=== PATIENT | female | born 1990 | race Caucasian/White ===

== ENCOUNTER 2016-08-02 17:18 | Emergency (ER) | payer BC ==
[2016-08-02 17:30] VITALS: TEMP 98.4; BMI 30.9
--- NOTE | 2016-08-02 20:08 | EDPRACDOC ---
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 Description: Reports: Spontaneous, Intermenstrual Location: Reports: Internal Vagina Relevant History: Reports: Sexually Active Control Method: Reports: None Associated Signs & Symptoms: Reports: Faintness, Vaginal Bleeding. Denies: Fever, Dysuria, Frequency, Abdominal Pain, Vomiting ED Past Medical History - History Reviewed Yes Nurses notes reviewed and agree except as marked - Patient Medical History Psychological History: Reports: Depression Systemic History: Denies: Cancer Surgical History: Reports: Other (). Denies: Hysterectomy - Social Medical History Smoking Status: Never smoker Lives In: Home EDM Review of Systems - Review of Systems ROS Negative Except as Marked: Yes All systems reviewed and were negative except as marked Constitutional: Fatigue, Weakness. negative: Fever Respiratory: negative: Shortness of Breath Cardiovascular: negative: Chest Pain Gastrointestinal: negative: Pain, Vomiting Genitourinary: Vaginal Bleeding. negative: Dysuria, Vaginal Discharge Musculoskeletal: Back (LOWER MIDLINE LUMBAR) - Physical Exam Constitutional: Alert Oriented to: Time, Person, Place Last recorded Vital Signs: Last Vital Signs Temp 98.4 F 08/02/16 17:27 Pulse 72 08/02/16 17:27 Resp 20 08/02/16 17:27 BP 128/76 08/02/16 17:27 Pulse Ox 100 08/02/16 17:27 Oxygen Pulse Oxygen Saturation 100 O2 Device Room Air Oxygen Flow Rate Fraction of Inspired Oxygen ( FIO2) - HEENT Head: negative: Deformity Nose: negative: Congestion, Discharge Neck: negative: Limited ROM - Respiratory/Cardiovascular Respiratory: Normal - CTA. negative: Accessory Muscle Use, Diminished, Tachypnea Cardiovascular: negative: Bradycardia, Tachycardia, Irregular - GI Auscultation: Normal Palpation: Normal Tenderness: Non tender - Integumentary Skin: Warm, Dry. negative: Rash - Neurologic Memory Impaired: Normal Motor Function: Normal Mood Description: Anxious Thought: Coherent Perception: Normal - Results 08/02/16 20:50 08/02/16 21:58 Decision Time to Discharge: 22:21 - Departure Yes I personally saw and evaluated the patient. Disposition: Home Condition: Stable Final Diagnosis: Uterine bleeding, dysfunctional, Back pain Instructions: Back Pain, Dysfunctional Uterine Bleeding (ED) Education/Counseling Given To: Patient Education/Counseling Given Regarding: Diagnosis, Treatment, Prognosis Referrals: None,No Provider [Primary Care Provider] - Call for Appointment Christiano Snyder MD [Staff Physician] - As Needed Prescriptions: Naproxen 500 mg PO BID #14 tablet
[2016-08-02 20:51] LABS: LEUKOCYTES/URINE TRACE (NEGATIVE); NITRITE/URINE NEG (NEGATIVE); URINE OCCULT BLOOD 2+ (NEG/TRACE)
[2016-08-02 20:52] LABS: ALL NEG? YES; MDMA* NEG (NEGATIVE); METHAMPHETAMINES NEG (NEGATIVE); OXYCODONE NEG (NEGATIVE)
[2016-08-02 21:10] LABS: AUTOMATED BASOPHIL 0.9 % (0-2); AUTOMATED EOSINOPHIL 1.1 % (0-5); AUTOMATED LYMPH 30.3 % (17-44); AUTOMATED NEUTROPHIL 60.7 % (45-76); MPV 7.9 fL (7.4-10.4)
[2016-08-02 21:19] LABS: PARTIAL THROMB. TIME 27.2 SEC (22-35); PT-INR 1.1
[2016-08-02 22:18] LABS: BLOOD UREA NITROGEN 14 MG/DL (7-17); CALC CORRECTED 9.2 MG/DL (8.4-10.2); CALCIUM 8.9 MG/DL (8.4-10.2); CALCULATED OSMOLALITY 262 MOs/Kg (270-290); CHLORIDE 103 mEq/L (98-107); GLUCOSE 89 MG/DL (70-99); SODIUM LEVEL 136 mEq/L (137-146); TOTAL PROTEIN 7.2 G/DL (6.3-8.2)
[2016-08-02] MEDS ORDERED: NAPROXEN 500 MG EC TAB PO ONE (22:21)
[2016-08-02 22:57] VITALS: BP 120/60; PULSE 62
== END 2016-08-02 22:50 | disposition home or self-care (01) ==
LOC: ED 17:18
DX: N93.8 Other specified abnormal uterine and vaginal bleeding (principal); M54.5 Low back pain
CPT/HCPCS: 36415; 80053; 80307; 81001; 81025; 85025; 85610; 85730; 99284; J3490